=== PATIENT | female | born 1955 | race Caucasian/White ===

== ENCOUNTER → 2016-07-19 | Outpatient (CLI) | payer OTHER ==
[~2016-07-19] MED LIST: BENADRYL50 MG PO; Bactrim,Septra DS 80 PO; MICROZIDE12.5 M1 PO; OxyCODONE PO; PERCOCET 5/31 TABLET PO; PHENERGAN25 MG PR; PHENTERMINE HCL15 MG PO; PROBIOTIC1 EAC2 PO; PROZAC10 MG PO; RANITIDINE HCL150 MG PO; ZYRTEC-D1 TABLE1 PO; ZyrTEC PO
== END | disposition home or self-care (01) ==
LOC: CDC 11:47
DX: Z01.810 Encounter for preprocedural cardiovascular examination (principal); K43.9 Ventral hernia without obstruction or gangrene
CPT/HCPCS: 93000

== ENCOUNTER 2016-08-08 06:50 | Day surgery (SDC) | payer OTHER ==
[~2016-08-08] VITALS: Ht 160 cm; Wt 150.2 kg
[~2016-08-08 06:50] MED LIST changes: -PERCOCET 5/31 TABLET PO
[2016-08-08 07:25] VITALS: BP 141/88
[2016-08-08] MEDS ORDERED: PERCOCET 5/31 TABLET PO (11:35)
[2016-08-08 16:35] VITALS: BP 155/73
[2016-08-08 20:00] VITALS: BP 135/74
[2016-08-08 23:15] VITALS: BP 148/80
[2016-08-09 03:15] VITALS: BP 141/76
[2016-08-09 07:45] VITALS: BP 134/72
[2016-08-09] MEDS ORDERED: ZOFRAN ODT4 MG PO (09:44)
[2016-08-09 10:55] VITALS: BP 132/56
== END 2016-08-09 14:24 | disposition home or self-care (01) ==
LOC: SDC 06:50 → 2EAST 11:10 → 2SOUTH 11:10 → 2EAST 16:14 → EDSTATUS 16:26 → 2SOUTH 16:26 → SDC 16:27 → 2EAST 08-09 14:24
PROC: 0WUF4JZ Supplement Abdominal Wall with Synthetic Substitute, Percutaneous Endoscopic Approach (ICD-10-PCS; principal; 2016-08-08)
DX: K43.6 Other and unspecified ventral hernia with obstruction, without gangrene (principal); E66.01 Morbid (severe) obesity due to excess calories; Z68.45 Body mass index [BMI] 70 or greater, adult; I10 Essential (primary) hypertension; M19.90 Unspecified osteoarthritis, unspecified site; Z87.891 Personal history of nicotine dependence; Z88.0 Allergy status to penicillin; Z88.2 Allergy status to sulfonamides; Z88.1 Allergy status to other antibiotic agents; Z91.09 Other allergy status, other than to drugs and biological substances
CPT/HCPCS: C1781; G0378; J0330; J1100; J1170; J2250; J2405; J2710; J3010; J3370; J7120

== ENCOUNTER → 2016-11-06 | Outpatient (CLI) | payer OTHER ==
[~2016-11-06] VITALS: Ht 162.6 cm; Wt 150.5 kg
[~2016-11-06] MED LIST changes: +PERCOCET 5/31 TABLET PO; +ZOFRAN ODT4 MG PO
== END | disposition home or self-care (01) ==
LOC: AMB 13:45
PROC: 0DJD8ZZ Inspection of Lower Intestinal Tract, Via Natural or Artificial Opening Endoscopic (ICD-10-PCS; principal; 2016-11-06)
DX: Z12.11 Encounter for screening for malignant neoplasm of colon (principal); K64.8 Other hemorrhoids; I10 Essential (primary) hypertension; E66.9 Obesity, unspecified; K21.9 Gastro-esophageal reflux disease without esophagitis; Z68.43 Body mass index [BMI] 50.0-59.9, adult; F32.9 Major depressive disorder, single episode, unspecified; Z88.0 Allergy status to penicillin; Z88.2 Allergy status to sulfonamides; Z88.1 Allergy status to other antibiotic agents; Z88.5 Allergy status to narcotic agent